=== PATIENT | female | born 1955 | race American Indian/Alaskan Native ===

== ENCOUNTER 2018-12-16 09:45 | Outpatient (CLI) | payer OTHER ==
--- NOTE | 2018-12-16 15:35 | Mammography Report ---
BILATERAL DIGITAL SCREENING MAMMOGRAM WITH CAD: 12/16/18 09:45:00 CLINICAL: Routine screening.Breast cancer survivor status post right mastectomy and radiation therapy. COMPARISON:08/19/17 FINDINGS: The breasts are heterogeneously dense, which may obscure small masses. Stable right upper outer postsurgical scar with surgical clips. A right inner labs the clip. No mass, suspicious architectural distortion or suspicious calcifications. IMPRESSION: No mammographic evidence of malignancy. BI-RADS CATEGORY: 2 -- Benign RECOMMENDATION: Routine mammographic screening in one year. COMMENT: Patient follow-up letters are generated via our [employer] application.
== END 2018-12-16 09:46 | disposition home or self-care (01) ==
LOC: SPVWC 09:45
PROVIDERS: ATTEND Family Medicine
DX: Z12.31 Encounter for screening mammogram for malignant neoplasm of breast (principal)
CPT/HCPCS: 77067

== ENCOUNTER 2021-11-21 11:02 | Outpatient (CLI) | payer MEDICARE, OTHER ==
--- NOTE | 2021-11-23 14:42 | Mammography Report ---
DIGITAL SCREENING MAMMOGRAM WITH CAD, 11/21/2021 CLINICAL INFORMATION / INDICATION: Routine screening mammography. TECHNIQUE: Digital bilateral 2D mammography was obtained in the craniocaudal and mediolateral obliqu e projections. This examination was interpreted with the benefit of Computer-Aided Detection analysis . COMPARISON: 12/16/2018 FINDINGS: Breast Density: There are scattered areas of fibroglandular density. No dominant mass, suspicious calcifications, or architectural distortion in either breast. Postlumpectomy scarring, right breast upper outer quadrant. Biopsy clip is present in the medial righ t breast. Overall, no significant interval change in the appearance of the mammogram. IMPRESSION: No mammographic evidence of malignancy. Follow up recommendation: Routine yearly BI-RADS Category 2: BENIGN. A "normal" or negative report should not discourage follow up or biopsy of a clinically significant f inding. A written summary of these findings will be mailed to the patient. The patient will be entered into a mammography reporting system which will generate a reminder letter for the patient's next appointmen t at the appropriate interval. The [employer] recommends yearly mammograms starting at age 40 and continuing as l hunter as a woman is in good health. Breast MRI is recommended for women with an approximate 20-25% or greater lifetime risk of breast cancer, including women with a strong family history of breast or ova portillo cancer or who have been treated for Hodgkin's disease. Signer Name: Kaelyn Loomis MD Signed: 11/23/2021 2:37 PM Workstation Name: [id number]
== END 2021-11-21 11:03 | disposition home or self-care (01) ==
LOC: SPVWC 11:02
PROVIDERS: ATTEND Family Medicine
DX: Z12.31 Encounter for screening mammogram for malignant neoplasm of breast (principal)
CPT/HCPCS: 77067